=== PATIENT | male | born 1960 | race Caucasian/White ===

== ENCOUNTER 2018-09-02 06:00 | Emergency (ER) | payer OTHER ==
[~2018-09-02] VITALS: Ht 188 cm; Wt 75.3 kg
[2018-09-02 06:34] VITALS: BP 140/84
== END 2018-09-02 06:35 ==
LOC: ER 06:02
DX: F15.10 Other stimulant abuse, uncomplicated (principal); I10 Essential (primary) hypertension; F20.9 Schizophrenia, unspecified; F32.9 Major depressive disorder, single episode, unspecified; F41.9 Anxiety disorder, unspecified; F17.200 Nicotine dependence, unspecified, uncomplicated

== ENCOUNTER 2019-06-10 13:51 | Inpatient (IN) | payer OTHER ==
[~2019-06-10] VITALS: Ht 188 cm; Wt 82.1 kg
--- NOTE | 2019-06-10 14:16 | NUR ---
[id number], ALTERED FOUND LYING OUTSIDE ESTABLISHMENT. BG 57 NURSING RESIDENT. PT ABLE TO ANSWER QUESTIONS APPROPRIATELY, BUT CONTINOUSLY RAMBLES. AOX3, RR EVEN AND UNLABORED. SKIN VERY COOL, HANDS AND FEET MACERATED. NO ACUTE DISTRESS NOTED. MADE COMFORTABLE, ON MONITOR. SEEN BY DR PRIDE. AWAITING ORDERS.
--- NOTE | 2019-06-10 14:28 | NUR ---
IV ACCESS OBTAINED, BLOOD DRAWN AND SENT TO STAT LAB. INDUSTRIAL HYGIENE ENGINEER AT BEDSIDE FOR EKG.
--- NOTE | 2019-06-10 14:28 | NUR ---
SREEDHAR SEARS AT BEDSIDE
[2019-06-10] MEDS ORDERED: IV NS 0.9% 1,000 ML BAG IV ONE (14:30)
--- NOTE | 2019-06-10 14:44 | NUR ---
WARMED FLUIDS INFUSING PER MD VERBAL ORDER.
[2019-06-10 14:48] LABS: BASOPHILS % (AUTO) 0.1 % (0.0-2.0); EOSINOPHILS % (AUTO) 0.1 % (0.0-6.0); HEMATOCRIT 41 % (39-51); HEMOGLOBIN 13.8 g/dL (13.5-17.5); LYMPHOCYTES # (AUTO) 0.6 /CMM (0.8-4.8); LYMPHOCYTES % (AUTO) 3.2 % (20.0-44.0); MEAN CORPUSCULAR HGB CONC 34 g/dl (31.0-36.0); MEAN CORPUSCULAR VOLUME 91 fL (80-96); MONOCYTES # (AUTO) 1.2 /CMM (0.1-1.30); MONOCYTES % (AUTO) 6.5 % (2.0-12.0); NEUTROPHILS # (AUTO) 17.1 /CMM (1.8-8.9); NEUTROPHILS % (AUTO) 90.1 % (43.0-81.0); PLATELET COUNT (AUTO) 191 /CMM (150-450); RED BLOOD CELL COUNT(AUTO) 4.46 MIL/uL (4.5-6.0)
--- NOTE | 2019-06-10 14:56 | NUR ---
PT PULLED OUT IV. Catheter intact and site benign. Pressure and 4x4 applied to site. No bleeding noted. TAKEN TO RADIOLOGY
[2019-06-10 15:06] LABS: CALCIUM, SERUM 8.1 mg/dL (8.5-10.1); CARBON DIOXIDE 20 mmol/L (21-32); CHLORIDE 101 mmol/L (98-107); CREATININE 2.6 mg/dL (0.6-1.3); GLUCOSE 64 mg/dL (74-106); SERUM AMMONIA 12 umol/L (11-32); SODIUM SERUM 140 mmol/L (136-145); UREA NITROGEN, BLOOD 69 mg/dL (7-18)
--- NOTE | 2019-06-10 15:18 | NUR ---
KEY PUNCH TEACHER/MED RECON UNABLE TO UPDATE MEDICATION INFORMATION AT THIS TIME. PATIENT UNABLE TO PROVIDE ANY INFORMATION SUCH NAME, PCP OR PHARMCY OF CHOICE. PATIENT STATED "I WAS AT [facility] 2 DAYS AGO, TRY TO GET INFORMATION FROM THEM". MENG FAXED TO [facility]MED[facility] REC[facility]DS DEPT. CALLED AND SPOKE WITH PHILLIP AND CONFIRMED MENG WAS RECEIVED. MENG AND FAX CONFIRMATION PLACE IN CHART.
[2019-06-10 15:20] LABS: ALANINE AMINOTRANSFERASE 152 U/L (12-78); ALBUMIN 4.2 g/dL (3.4-5.0); ALCOHOL, BLOOD < 3 mg/dL (0-0); ALKALINE PHOSPHATASE 67 U/L (46-116); ASPARTATE AMINOTRANSFERASE 446 U/L (15-37); BILIRUBIN,DIRECT 0.3 mg/dL (0.0-0.2); BILIRUBIN,TOTAL 1.6 mg/dL (0.2-1.0)
[2019-06-10] MEDS ORDERED: DEXTROSE 50%-WATER 50 ML DISP.SYRIN IVP ONE (15:30)
[2019-06-10] MEDS ORDERED: PHARMACY ADD 1 AMP MVI TO IVF DAILY ONE BAG XX PRN (15:30)
[2019-06-10] MEDS ORDERED: IV D5 LR 500 ML IV ONE (15:30)
--- NOTE | 2019-06-10 15:44 | NUR ---
NEW IV PLACED, PT VERNON WELL.
[2019-06-10] MEDS ORDERED: DEXTROSE 50%-WATER 50 ML DISP.SYRIN ONE (15:49)
[2019-06-10] MEDS ORDERED: D5 LR IV ONE (16:00)
[2019-06-10] MEDS ORDERED: MVI ADULT IV ONE (16:00)
[2019-06-10] MEDS ORDERED: PIPERACILLIN /TAZOBACTAM 3.375 G in IV D5W 50 ML IV ONE (16:00)
--- NOTE | 2019-06-10 16:00 | NUR ---
PRE-MIXED BANANA BAG HANGING
[2019-06-10] MEDS ORDERED: PIPERACILLIN /TAZOBACTAM 3.375 G VIAL IV ONE (16:17)
--- NOTE | 2019-06-10 16:28 | NUR ---
URINE COLLECTED AND SENT TO STAT LAB
[2019-06-10 16:34] LABS: APPEARANCE,URINE Slightly Cloudy (CLEAR); BILIRUBIN,URINE Negative (NEGATIVE); BLOOD, URINE Large Ery/uL (NEGATIVE); KETONES,URINE 15 (NEGATIVE); LEUKOCYTE ESTERASE ,URINE Negative (NEGATIVE); NITRITE, URINE Negative (NEGATIVE); PROTEIN,URINE 30 mg/dl (NEGATIVE); UGLUCOSE Negative (NEGATIVE); UROBILINOGEN,URINE 0.2 EU/dL (0.2)
--- NOTE | 2019-06-10 16:34 | NUR ---
NURSING SUP GAVE [place] 119-2.
[2019-06-10 16:45] LABS: COLOR,URINE YELLOW (YELLOW)
[2019-06-10 16:46] LABS: BACTERIA,URINE Few /HPF (None Seen); SQUAMOUS EPITHELIAL CELL,UR Few /HPF (None Seen); WBC,URINE 0-2 /HPF (0-3)
--- NOTE | 2019-06-10 17:04 | NUR ---
PT ATTEMPTED TO GET OUT OF BED. INFORMED HIM THAT IT'S UNSAFE AND HE IS CONNECTED TO MANY MACHINES. ENCOURAGED HIM BACK TO BED
--- NOTE | 2019-06-10 17:30 | NUR ---
PT PULLED OUT IV WHEN TRYING TO MOVE AROUND. Catheter intact and site benign. Pressure and 4x4 applied to site. No bleeding noted.
--- NOTE | 2019-06-10 17:45 | NUR ---
NEW IV PLACED. PT VERNON WELL. EDUCATED TO BE MINDFUL WHEN MOVING AROUND.
--- NOTE | 2019-06-10 17:51 | NUR ---
SPOKE WITH FOURTH HAND EDUARDO FOR CLINICALS UPDATE
--- NOTE | 2019-06-10 17:53 | NUR ---
PAGED [facility].
--- NOTE | 2019-06-10 18:07 | NUR ---
PT PULLED OUT 3RD IV. Catheter intact and site benign. Pressure and 4x4 applied to site. No bleeding noted. AWARE.
[2019-06-10] MEDS ORDERED: ONDANSETRON HCL/PF 4 MG/2 ML VIAL IVP PRN (18:30)
[2019-06-10] MEDS ORDERED: HYDROCODONE/APAP 5/325MG 1 EACH TABLET PO PRN (18:30)
[2019-06-10] MEDS ORDERED: MAG HYDROX/AL HYDROX/SIMETH 30 ML UDC PO PRN (18:30)
[2019-06-10] MEDS ORDERED: MORPHINE SULFATE INJ 2 MG/ML DISP.SYRIN IV PRN (18:30)
[2019-06-10] MEDS ORDERED: MAGNESIUM HYDROXIDE 30 ML UDC PO PRN (18:30)
[2019-06-10] MEDS ORDERED: ZOLPIDEM TARTRATE 5 MG TABLET PO PRN (18:30)
[2019-06-10] MEDS ORDERED: ACETAMINOPHEN 325 MG TABLET PO PRN (18:30)
--- NOTE | 2019-06-10 18:35 | NUR ---
NEW IV PLACED. PT VERNON WELL. EDUCATED TO BE MINDFUL WHEN MOVING AROUND.
[2019-06-10] MEDS ORDERED: LORAZEPAM INJ 2 MG/ML VIAL IV PRN (19:00)
--- NOTE | 2019-06-10 19:26 | NUR ---
REPORT GIVEN TO ESTEPHANIA WILSON FOR 119-2
--- NOTE | 2019-06-10 19:30 | NUR ---
RECEIVED REPORT FROM ESTEPHANIA HUDSON FOR WILMA.
[2019-06-10 19:40] VITALS: BP 135/86
--- NOTE | 2019-06-10 19:40 | NUR ---
RN OPENING/ADMITTING NOTES RECEIVED PATIENT FROM ER VIA GURNEY, AMBULATED TO BED WITH STAND BY ASSISTANCE. PATIENT A/OX4, DENIES ANY PAIN AT THE MOMENT, APPEARS ANXIOUS. ON TELE MONITOR SR WITH HR 80'S. ON ROOM AIR, TOLERATING WELL NO SOB OR RESPIRATORY DISTRESS NOTED. SKIN ASSESSMENT DONE AND RECORDED, VITAL SIGNS WNL (SEE FLOWSHEET). IV SITE LEFT FA 18G, FLUSHING AND PATENT, MVI BAG SCANNED IN ER AND RUNNING AT 125ML/HR, TOLERATING WELL, NO INFILTRATION NOTED. ORIENTED PATIENT TO ROOM. BELONGINGS LIST CHECKED. INSTRUCTED PATIENT TO USE CALL LIGHT FOR ASSISTANCE. KEPT PT CLEAN, DRY, AND COMFORTABLE. SAFETY MEASURES IN PLACE; CALL LIGHT WITHIN REACH, SIDE RAILS UP X2, HOB ELEVATED, BED LOCKED AND IN LOWEST POSITION, BED ALARM ON. WILL ATTEND TO MD ADMITTING ORDERS. WILL CONT TO MONITOR PT CLOSELY.
--- NOTE | 2019-06-10 19:47 | NUR ---
[facility]
[2019-06-10] MEDS: PIPERACILLIN /TAZOBACTAM 3.375 G in IV D5W 100 ML IV SCH (21:47)
--- NOTE | 2019-06-10 23:29 | NUR ---
RN NOTES CRITICAL LAB CALLED BY [facility] LACT[facility]ID 2.0; DR. HARDY AT BEDSIDE AND MADE AWARE, NO NEW ORDERS NOTED.
[2019-06-11] VITALS: BP 126/80
[2019-06-11] MEDS ORDERED: PIPERACILLIN /TAZOBACTAM 3.375 G in IV D5W 50 ML IV SCH ×2
--- NOTE | 2019-06-11 00:15 | NUR ---
RN NOTES PATIENT PULLED OUT IV DESPITE INSTRUCTIONS NOT TO REMOVE LINES INCLUDING HIS TELE MONITOR. PATIENT A/OX4 HOWEVER WITH HISTORY OF SCHIZOPHRENIA. MD MADE AWARE AND STATED OKAY TO ORDER BILATERAL SOFT WRIST RESTRAINTS. WILL CONT TO MONITOR PT CLOSELY.
[2019-06-11] MEDS: IV NS 0.9% 1,000 ML IV PRN ×2 (02:03→20:07)
[2019-06-11 04:00] VITALS: BP 126/79
[2019-06-11] MEDS: PIPERACILLIN /TAZOBACTAM 3.375 G in IV D5W 100 ML IV SCH ×3 (05:32→20:07)
[2019-06-11 06:59] LABS: BASOPHILS % (AUTO) 0.1 % (0.0-2.0); HEMATOCRIT 37 % (39-51); HEMOGLOBIN 12.9 g/dL (13.5-17.5); LYMPHOCYTES # (AUTO) 0.8 /CMM (0.8-4.8); LYMPHOCYTES % (AUTO) 4.5 % (20.0-44.0); MEAN CORPUSCULAR HGB CONC 35 g/dl (31.0-36.0); MEAN CORPUSCULAR VOLUME 90 fL (80-96); MONOCYTES # (AUTO) 1.4 /CMM (0.1-1.30); MONOCYTES % (AUTO) 7.7 % (2.0-12.0); NEUTROPHILS # (AUTO) 16.2 /CMM (1.8-8.9); NEUTROPHILS % (AUTO) 87.7 % (43.0-81.0); PLATELET COUNT (AUTO) 240 /CMM (150-450); RED BLOOD CELL COUNT(AUTO) 4.15 MIL/uL (4.5-6.0); WHITE BLOOD COUNT (AUTO) 18.5 K/uL (4.3-11.0)
[2019-06-11 07:08] LABS: ALBUMIN 3.4 g/dL (3.4-5.0); BILIRUBIN,DIRECT 0.3 mg/dL (0.0-0.2); BILIRUBIN,TOTAL 1.6 mg/dL (0.2-1.0); CALCIUM, SERUM 7.4 mg/dL (8.5-10.1); CREATININE 1.9 mg/dL (0.6-1.3); MAGNESIUM 2.4 mg/dL (1.8-2.4); PHOSPHORUS 4.4 mg/dL (2.5-4.9); POTASSIUM 4.1 mmol/L (3.5-5.1)
--- NOTE | 2019-06-11 07:15 | NUR ---
RN CLOSING NOTES PATIENT SLEEPING IN BED, BUT EASY TO AROUSE VERBALLY. PRN TYLENOL GIVEN LAST NIGHT FOR RIGHT ARM THROBBING PAIN PER PATIENT, WOUND CONSULT ORDERED AND PENDING. ON TELE MONITOR SR WITH HR 90'S. ON ROOM AIR, TOLERATING WELL NO SOB OR RESPIRATORY DISTRESS NOTED. ON BILATERAL SOFT WRIST RESTRAINTS FOR PATIENT SAFETY, CHECKED PT PER PROTOCOL. IV SITE LEFT FA 18G AND RIGHT FA 20G, BOTH FLUSHING AND PATENT. IVF RUNNING ORDERED AND ZOSYN 25ML/HR RUNNING, TOLERATING WELL, NO INFILTRATION NOTED. KEPT PT CLEAN, DRY, AND COMFORTABLE. ALL MD ORDERS ATTENDED, ALL NEEDS ANTICIPATED AND MET. SAFETY MEASURES MAINTAINED. ENDORSED TO AM RN FOR WILMA.
--- NOTE | 2019-06-11 07:45 | NUR ---
patient resting in room - no complaints or concerns- offered restroom and rom- safety precautions in place- will continue to monitor report and record
[2019-06-11 08:00] VITALS: BP_SYST 112; BP_SYST 96; BP_DIAS 60; BP_DIAS 67
[2019-06-11] MEDS: PANTOPRAZOLE 40 MG TABLET.DR PO SCH (08:44)
--- NOTE | 2019-06-11 09:14 | NUR ---
offered patietn a bathroom break to ambulate to rest room
--- NOTE | 2019-06-11 11:20 | NUR ---
SHORTHAND TEACHER made aware of lactic acid 2.5
[2019-06-11 12:00] VITALS: BP_SYST 110; BP_SYST 126; BP_DIAS 73; BP_DIAS 75
[2019-06-11 16:00] VITALS: BP 125/65
--- NOTE | 2019-06-11 18:50 | NUR ---
patient has a had a restful day - ate 100% of meals- able to ambulate to br- piv infusing- no complaints of pain- safety precautions in place- restraints still in use- will continue to monitor rpeort and record
--- NOTE | 2019-06-11 19:00 | NUR ---
RN OPENING NOTES: PATIENT AWAKE AND VERBALLY RESPONSIVE. NO SOB. NO C/O PAIN AT THIS TIME. AAOX3. PATIENT AMBULATES WITH STANDBY ASSIST. ENCOURAGED TO USE CALL LIGHT WHEN IN NEED OF ASSISTANCE TO THE BATHROOM. PATIENT VERBALIZES UNDERSTANDING. PATIENT HAS (R) FA G20, C/D/I, FLUSHING WELL. ON NS AT 75 MLS/HR. SAFETY PRECAUTIONS IMPLEMENTED. BED LOCKED, ALARM ON, LOW POSITION. CALL LIGHT PLACED WITHIN REACH. WILL CONT. TO MONITOR.
[2019-06-11 20:00] VITALS: BP 132/87
[2019-06-12] VITALS: BP 129/75
--- NOTE | 2019-06-12 00:03 | NUR ---
RN NOTE: PATIENT C/O INSOMNIA AND REQUESTING FOR SLEEPING MEDICATION. WILL ADMINISTER AMBIEN ORDERED. WILL CONT. TO MONITOR.
[2019-06-12 04:00] VITALS: BP 129/82
[2019-06-12] MEDS: PIPERACILLIN /TAZOBACTAM 3.375 G in IV D5W 100 ML IV SCH ×2 (04:11→13:24)
[2019-06-12] MEDS: IV NS 0.9% 1,000 ML IV PRN (06:55)
--- NOTE | 2019-06-12 07:15 | NUR ---
RN CLOSING NOTES: PATIENT AWAKE AND VERBALLY RESPONSIVE. NO SOB. NO C/O PAIN AT THIS TIME. NO ACUTE DISTRESS DURING SHIFT. CALL LIGHT WITHIN REACH. ENDORSED TO AM SHIFT NURSE FOR CONTINUITY OF CARE.
[2019-06-12 07:29] LABS: BASOPHILS % (AUTO) 0.2 % (0.0-2.0); EOSINOPHILS % (AUTO) 0.2 % (0.0-6.0); HEMATOCRIT 36 % (39-51); HEMOGLOBIN 12.2 g/dL (13.5-17.5); LYMPHOCYTES # (AUTO) 1.3 /CMM (0.8-4.8); LYMPHOCYTES % (AUTO) 17.2 % (20.0-44.0); MEAN CORPUSCULAR HGB CONC 34 g/dl (31.0-36.0); MEAN CORPUSCULAR VOLUME 91 fL (80-96); MONOCYTES # (AUTO) 0.7 /CMM (0.1-1.30); MONOCYTES % (AUTO) 9.4 % (2.0-12.0); NEUTROPHILS # (AUTO) 5.3 /CMM (1.8-8.9); PLATELET COUNT (AUTO) 201 /CMM (150-450); RED BLOOD CELL COUNT(AUTO) 3.89 MIL/uL (4.5-6.0); WHITE BLOOD COUNT (AUTO) 7.3 K/uL (4.3-11.0)
[2019-06-12 07:40] LABS: CALCIUM, SERUM 8.1 mg/dL (8.5-10.1); CREATININE 1.3 mg/dL (0.6-1.3); POTASSIUM 4.3 mmol/L (3.5-5.1)
[2019-06-12] MEDS: PANTOPRAZOLE 40 MG TABLET.DR PO SCH (07:49)
[2019-06-12 08:00] VITALS: BP 132/94
--- NOTE | 2019-06-12 14:45 | NUR ---
RN CLOSING NOTE PATIENT LEAVING AGAINST MEDICAL ADVICE. MD MADE AWARE. PATIENT REFUSED TO BE PHOTOGRAPHED. IV SITE AND ID BAND REMOVED. AMA FORM SIGNED.
--- NOTE | 2019-06-13 14:36 | NUR ---
Social service consult requested by for homelessness. AUTOMOTIVE GLASS TECHNICIAN attempted to meet the pt today, however pt. left AMA over the weekend on 06/12/2019. AUTOMOTIVE GLASS TECHNICIAN unable to assess.
[2019-06-14 07:06] LABS: HIV SCRN 4G wRFX Non Reactive (Non Reactive)
== END 2019-06-12 15:31 | disposition left against medical advice (07) | DRG 720 ==
LOC: ER 13:59 → TELE-TD 18:48 → TELE1 20:20
PROVIDERS: ADMIT Nurse Practitioner Acute Care; ATTEND Nurse Practitioner Acute Care
DX: A41.9 Sepsis, unspecified organism (principal); N17.0 Acute kidney failure with tubular necrosis; G92 Toxic encephalopathy; F15.10 Other stimulant abuse, uncomplicated; Z59.0 Homelessness; F20.9 Schizophrenia, unspecified; F17.200 Nicotine dependence, unspecified, uncomplicated; E80.6 Other disorders of bilirubin metabolism; I10 Essential (primary) hypertension; R74.0 Nonspecific elevation of levels of transaminase and lactic acid dehydrogenase [LDH]; J15.9 Unspecified bacterial pneumonia; N40.0 Benign prostatic hyperplasia without lower urinary tract symptoms; R94.6 Abnormal results of thyroid function studies
CPT/HCPCS: 36415; 70450-TC; 71045-TC; 80048-TC; 80053-TC; 80061-TC; 80074; 80076-TC; 80305; 81000-TC; 82140-TC; 82962-TC; 83605-TC; 83735-TC; 84100-TC; 84439-TC; 84443-TC; 84484-TC; 85025-TC; 85730-TC; 87040-TC; 87081-TC; G0378; G0480; J2543; J3490; J7030; J7060